=== PATIENT | male | born 1975 | race Caucasian/White ===

== ENCOUNTER 2024-03-08 15:16 | Emergency (ER) | payer BC, SELFPAY ==
[2024-03-08 15:17] VITALS: BP 157/90; PULSE 76; RESP 15; TEMP 36; O2SAT 100; BMI 31.8
--- NOTE | 2024-03-08 15:58 | CT_ITS ---
EXAM: CT ANGIOGRAPHY HEAD AND NECK WITH INTRAVENOUS CONTRAST CLINICAL INDICATION: sever headache TECHNIQUE: [place] [facility] [place]/head and neck CT angiography protocol performed with intravenous contrast. This CT exam was performed using one or more of the following dose reduction techniques: automated exposure control, adjustment of the mA and/or kV according to patient size, and/or use of iterative reconstruction technique. MIP reconstructed images were created and reviewed. CONTRAST: IV 100mL [id number] COMPARISON: No relevant prior studies available. FINDINGS: HEAD: RIGHT ANTERIOR CEREBRAL ARTERY: Unremarkable. No occlusion or significant stenosis. Anterior communicating artery is present. No aneurysm. RIGHT MIDDLE CEREBRAL ARTERY: Unremarkable. No occlusion or significant stenosis. No aneurysm. RIGHT POSTERIOR CEREBRAL ARTERY: Unremarkable. No occlusion or significant stenosis. No aneurysm. RIGHT INTRACRANIAL INTERNAL CAROTID ARTERY: Unremarkable. No significant stenosis. No dissection or occlusion. RIGHT INTRACRANIAL VERTEBRAL ARTERY: Unremarkable. No significant stenosis. No dissection or occlusion. LEFT ANTERIOR CEREBRAL ARTERY: Unremarkable. No occlusion or significant stenosis. No aneurysm. LEFT MIDDLE CEREBRAL ARTERY: Unremarkable. No occlusion or significant stenosis. No aneurysm. LEFT POSTERIOR CEREBRAL ARTERY: Unremarkable. No occlusion or significant stenosis. No aneurysm. LEFT INTRACRANIAL INTERNAL CAROTID ARTERY: Unremarkable. No significant stenosis. No dissection or occlusion. LEFT INTRACRANIAL VERTEBRAL ARTERY: Unremarkable. No significant stenosis. No dissection or occlusion. BASILAR ARTERY: Unremarkable. No occlusion or significant stenosis. No aneurysm. OTHER VASCULATURE: No vascular malformation. NECK: RIGHT COMMON CAROTID ARTERY: Unremarkable. No significant stenosis. No dissection or occlusion. RIGHT EXTRACRANIAL INTERNAL CAROTID ARTERY: Unremarkable. No significant stenosis. No dissection or occlusion. RIGHT EXTERNAL CAROTID ARTERY: Unremarkable. No occlusion. RIGHT EXTRACRANIAL VERTEBRAL ARTERY: Unremarkable. No significant stenosis. No dissection or occlusion. LEFT COMMON CAROTID ARTERY: Unremarkable. No significant stenosis. No dissection or occlusion. LEFT EXTRACRANIAL INTERNAL CAROTID ARTERY: Unremarkable. No significant stenosis. No dissection or occlusion. LEFT EXTERNAL CAROTID ARTERY: Unremarkable. No occlusion. LEFT EXTRACRANIAL VERTEBRAL ARTERY: Unremarkable. No significant stenosis. No dissection or occlusion. THYROID: There is a 1.9 x 1.7 cm peripherally enhancing low-density lesion in the left lobe of thyroid gland. BRACHIOCEPHALIC AND SUBCLAVIAN ARTERIES: Unremarkable as visualized. No occlusion or significant stenosis. LUNG APICES: Unremarkable as visualized. HEAD and NECK: BONES/JOINTS: Unremarkable. No discrete lytic or blastic abnormalities. SOFT TISSUES: Unremarkable. CAROTID STENOSIS REFERENCE USING NASCET CRITERIA: % ICA stenosis = (1 - narrowest ICA diameter/diameter of distal cervical ICA) x 100. Mild - <50% stenosis. Moderate - 50-69% stenosis. Severe - 70-94% stenosis. Near occlusion - 95-99% stenosis. Occluded - 100% stenosis. CT/CTA Head AND Neck W/ Contrast IMPRESSION: No acute findings in the arteries of the head and neck. Electronically Signed: Bobo Haddad MD at 17:17 EST ,
--- NOTE | 2024-03-08 16:02 | EX.ED.VIS.HA ---
HPI History of Present Illness Chief Complaint: Headache Informant: patient Onset/Context/Timing Onset: Days Context: Sudden (Awoke with the headache unsure of timing.) Timing: Continuous and Waxes and wanes Quality -Headache: Negative for Similar Prior Headaches Current Severity: Moderate Maximum Severity: Severe Associated Symptoms/Injury Associated Symptoms: Negative for Fever, Nausea, Vomiting, Sore Throat, Sinus Pressure, Numbness, Tingling, Preceding Aura, Visual Changes, Blurred Vision, Photophobia or Visual Loss Injury - [place]: Negative for Direct Trauma or Fall Narrative Narrative: Healthy 48-year-old male states on Wednesday he awoke with a headache left posterior scalp going on his forehead. He typically does not get headaches. There is no family history of brain aneurysms or bleeds or intracranial surgery. And a family history of migraines. Last week he had a URI with some mild sinus congestion but that resolved midweek and has been feeling fine. He is on no medications nor any blood thinners. He denies any fever. Denies any neck pain. Denies any trouble using his arms or legs or with his balance. No weakness or numbness. No one else at home is currently having headaches. Prior similar symptoms: No Recent Illness/Hospitalization: No PFSH PFSH Medical History no medical history no medical history Allergy/AdvReac Type Severity Reaction Status Date / Time No Known Allergies Allergy Verified 03/08/24 15:17 Surgical History no surgical history no surgical history Social History Smoking Status: Never smoker ROS ROS ED ROS Narrative Headache. No other symptoms. Constitutional Constitutional ED: Denies chills or fever(s) Eyes Eyes: Denies blurry vision ENT ENT ED: Denies ear pain Cardiovascular Cardiovascular: Denies chest pain Respiratory/Chest Respiratory/Chest: Denies cough Gastrointestinal Gastrointestinal: Denies abdominal pain Genitourinary Genitourinary ED: Denies dysuria Musculoskeletal Musculoskeletal: Denies arthralgias Integumentary Denies abscess Neurologic Neurologic: Denies headache(s) Psychiatric Psychiatric: Denies anxiety Endocrine Endocrinology: Denies polydipsia Hematologic/Lymphatic Hematologic/Lymphatic: Denies easy bleeding Allergic/Immunologic Allergic/Immunologic ED: Denies mouth swelling or tongue swelling EXAM Physical Exam Narrative Exam Narrative: Middle aged male sitting upright in bed. Vital signs are stable afebrile. No distress. No other family present in the room. H EENT exam pupils round react to light. His motions are intact. Normal facial appearance. No droop. Normal speech. No trauma to his face or scalp. No reproducible pain. No hematoma or lacerations. TMs normal. Tongue midline. Neck nontender no meningismus no lymphadenopathy. Normal range of motion. Lungs clear to auscultation bilaterally. Heart regular rhythm no murmur. Rate about 75. Chest wall ribs nontender. Abdomen soft nontender. Moving all 4 extremities. 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 Dorsi and plantarflexion intact. Fingertip to nose [id number] within normal limits. Able to lift either upper or lower extremity without drift. NIH score is 0. No focal motor findings. Completely benign exam. Const Vital Signs: 03/08/24 15:17 03/08/24 17:16 Temperature 96.8 F L Temperature Source Temporal Pulse Rate 76 64 Respiratory Rate 15 18 Blood Pressure 157/90 H 134/78 H Blood Pressure Mean 112 96 Pulse Ox 100 98 Oxygen Delivery Method Room Air Room Air Positive well nourished and well developed; Negative for cachectic, contractures or unkempt General Appearance ED: well developed; Negative for unkempt, cachectic, contractures, cyanotic or diaphoretic Nutritional Appearance: Negative for cachectic HEENT Reports normocephalic, TM's clear and moist mucous membranes; Denies dry mucous membranes atraumatic; Negative for trauma, tenderness, temporal artery tenderness or vesicular rash Face and Sinus: Negative for sinus tenderness Tympanic Membrane ED: Yes TM's clear Mouth ED: No dry mucous membranes Mouth: No dry mucous membranes Eyes PERRL and EOMs intact bilaterally General Eye ED: Negative for pale conjunctiva or scleral icterus Neck no lymphadenopathy, supple, no meningeal signs and no JVD General: Negative for tenderness Resp normal respiratory effort and clear to auscultation bilaterally Effort and Inspection: Negative for retractions Auscultation: Negative for rales, rhonchi, wheezes or diminished lung sounds Cardio regular rate, regular rhythm, S1 normal heart sound, S2 normal heart sound and no murmurs Rate: Negative for bradycardia or tachycardic Rhythm: Negative for abnormal rhythm GI non-tender and non-distended Auscultation: normoactive bowel sounds Palpation: soft; Negative for firm, tender, guarding or mass Back/Spine no CVA tenderness General Back: Negative for CVA tenderness or tenderness Cervical Spine: Negative for cervical spine tenderness Thoracic Spine / Upper Back: Negative for thoracic spinal tenderness Lumbar Spine / Lower Back: Negative for lumbar spinal tenderness Extremity normal to inspection and full ROM Neuro oriented x3, CN's II-XII intact bilaterally and no sensory deficits noted Sensorium / Orientation: awake, alert, oriented to person, oriented to place and oriented to time; Negative for orientation impaired or lethargic Coordination / Balance: [id number] test normal and [id number] test normal Speech: speech normal Motor Exam: strength 5/5 throughout Psych mental status grossly normal Appearance: Negative for unkempt Attitude: No agitated Mood & Affect: Negative for depressed, anxious or tearful Skin General Skin Exam: elasticity normal; Negative for turgor normal or jaundice Lesions: no lesions Rashes: no rashes MDM MDM MDM Narrative Medical decision making narrative: 48-year-old male with moderate to severe headache for 3 days. No prior history of headaches. No family history of bleeds, aneurysms or intracranial surgery. As a completely normal neurologic exam. No one else at home is currently having headaches. Screening labs and CT will be obtained. Will be treated with Toradol Benadryl and Reglan IV fluids and reassess. Repeat exam around 5 PM patient had a continued headache. He was given 4 morphine. Repeat exam at History & Record Review Discussion w/independent historian: Patient Additional record(s) reviewed:: No prior records Lab Data Attestation: I reviewed the patient's lab results. Lab results narrative: CBC normal. White count 9. H&H 16 and 46. Platelets 273. Electrolytes unremarkable gap 4. BUN 19 creatinine 1. Glucose 98. CTA of the brain negative. No bleed. No mass. No aneurysm. Labs: Laboratory Results - last 24 hr 03/08/24 16:07 WBC 9.2 RBC 5.36 Hgb 16.1 Hct 46.3 MCV 86.4 MCH 30.0 MCHC 34.8 RDW Std Deviation 39.5 RDW Coeff of Vivienne 12.7 Plt Count 273 MPV 9.7 Immature Gran % (Auto) 0.500 Neut % (Auto) 59.1 Lymph % (Auto) 32.4 Spencer % (Auto) 5.3 Eos % (Auto) 2.1 Baso % (Auto) 0.6 Absolute Neuts (auto) 5.5 Absolute Lymphs (auto) 2.99 Nucleated RBC % 0 Sodium 138 Potassium 4.0 Chloride 106 Carbon Dioxide 28.0 Anion Gap 4 L BUN 19 H Creatinine 1.08 Estim Creat Clear Calc 104.39 Est GFR (MDRD) Af Amer 93 Est GFR (MDRD) Non-Af 77 BUN/Creatinine Ratio 17.6 Glucose 98 Calcium 9.2 Radiography Diagnostic Testing: Clinical Impression(s) from Imaging Studies Head/Neck CTA 03/08/24 15:58 IMPRESSION: No acute findings in the arteries of the head and neck. Electronically Signed: Bobo Haddad MD at 17:17 EST , Discharge Plan Triage Chief Complaint: Headache ED Provider: Eligio Hickman Dx/Rx/DC Orders Primary Care Provider: Elbert Harris Referrals: Elbert Harris MD [Primary Care Provider] - Print Language: Haitian
[2024-03-08 16:17] LABS: Absolute Lymphocyte Count 2.99 X10^3/uL (0.83-4.51); Absolute Neutrophil Count 5.5 X10^3/uL (2.0-7.7); Basophil# 0.06 X10^3/uL; Basophil% 0.6 % (0-1); Eosinophil# 0.19 X10^3/uL; Eosinophils% 2.1 % (0-5); Hematocrit 46.3 % (40-54); Hemoglobin 16.1 g/dL (13.0-16.5); Lymphocyte # 2.99 X10^3/ul (0.83-4.51); Lymphocyte % 32.4 % (19-41); Mean Corp Hgb Conc 34.8 g/dL (32-36); Mean Corpuscular Volume 86.4 fL (80-94); Mean Platelet Vol. 9.7 fl (6.2-12.0); Monocyte# 0.49 X10^3/uL; Monocyte% 5.3 % (0-10); NRBC Flagged by Analyzer 0 % (0-5); Neutrophil # 5.46 X10^3/uL (2.7-7.7); Neutrophil % 59.1 % (47-70); Platelet Count 273 K/mm3 (150-450); RBC Distribution Width CV 12.7 % (11.6-14.6); RBC Distribution Width SD 39.5 fl (35.1-43.9); Red Blood Count 5.36 M/mm3 (4.6-6.2); White Blood Count 9.2 K/mm3 (4.4-11.0)
[2024-03-08] MEDS: Ketorolac 30 MG/ML Syringe IV (16:20)
[2024-03-08] MEDS: DiphenhydrAMINE 50 MG/ML Syringe 25 MG IV (16:20)
[2024-03-08] MEDS: Metoclopramide 10 MG/2 ML Vial 5 MG IV (16:20)
[2024-03-08] MEDS: 0.9% Normal Saline (500mL Bag) 500 ML 999 ML IV (16:26)
[2024-03-08 16:35] LABS: Anion Gap 4 (5-15); BUN 19 mg/dL (7-18); BUN/Creat Ratio 17.6 RATIO (10-20); Calcium,Total 9.2 mg/dL (8.5-10.1); Chloride 106 mmol/L (98-107); Creatinine, Serum 1.08 mg/dL (0.70-1.30); EST Glomerular Filtration Rate 77 mL/min (>60); Est Glom Filt Rate - Afr Amer 93 mL/min (>60); Estimated Creatinine Clearance 104.39 ml/min; Glucose 98 mg/dL (74-106); Sodium Level 138 mmol/L (136-145)
[2024-03-08 17:16] VITALS: BP 134/78; PULSE 64; RESP 18; O2SAT 98
[2024-03-08] MEDS: Morphine 4 MG/ML Syringe IV (17:43)
[2024-03-08 18:07] VITALS: BP 130/88; PULSE 85; RESP 16; TEMP 36.1; O2SAT 99
== END 2024-03-08 18:09 | disposition home or self-care (01) ==
PROVIDERS: Emergency Provider Emergency Medicine; PCP Family Medicine; Referring Provider Emergency Medicine; Visit Provider Emergency Medicine
DX: R51.9 Headache, unspecified (principal)
CPT/HCPCS: 70496; 70498; 80048; 85025; 96361; 96374; 96375; 99283; Q9967; A4216

== ENCOUNTER 2024-07-10 19:17 | Emergency (ER) | payer BC, SELFPAY ==
[2024-07-10 19:18] VITALS: BP 143/101; PULSE 107; RESP 20; TEMP 36.7; O2SAT 97; BMI 32.8
--- NOTE | 2024-07-10 20:11 | US_ITS ---
PROCEDURE: VENOUS DUPLEX IMAG/LIMITED/UNI 07/10/2024 REASON FOR EXAM: Leg pain and swelling M 49 y/o TECHNIQUE: Grayscale color flow and doppler analysis of the left lower extremity. FINDINGS: There is no intraluminal echogenicity to suggest the presence of a deep venous thrombosis. Appropriate respiratory variation, augmentation and venous compression is noted. Oval hypoechoic area within the superficial subcutaneous fat of the calf may represent a thrombosed superficial vein. US/Venous Duplex Imag/Limited/Uni IMPRESSION: No ultrasound evidence of deep venous thrombosis. Suspect thrombosed superficial vein in the left calf. Reading Location: [id number]
[2024-07-10] MEDS: Aspirin 325 MG Tablet PO (21:33)
--- NOTE | 2024-07-10 21:40 | EDS_ITS ---
HPI History of Present Illness Chief Complaint: Lower Extremity Injury Informant: patient Narrative Narrative: 49-year-old male presenting to the emergency room with a chief complaint of concern for blood clot. Patient states on Wednesday he began to have some pain redness and firm sensation over some varicose veins over the medial left leg. He states that the distal leg is not particularly swollen compared to the other. He notes varicosities over the medial thigh that do not feel the same way. No history of DVT/PE or risk factors.. He went to urgent care was referred to emergency. PFSH PFS Medical History no medical history Allergy/AdvReac Type Severity Reaction Status Date / Time No Known Allergies Allergy Verified 03/08/24 15:17 Social History Smoking Status: Never smoker ROS ROS ED Constitutional Constitutional ED: Denies chills or weight loss Eyes Eyes: Denies change in vision or diplopia ENT ENT ED: Denies ear pain, rhinorrhea or sore throat Cardiovascular Cardiovascular: Denies chest pain, orthopnea, palpitations or racing heartbeat Respiratory/Chest Respiratory/Chest: Denies cough, dyspnea or orthopnea Gastrointestinal Gastrointestinal: Denies abdominal pain, diarrhea, nausea or vomiting Genitourinary Genitourinary ED: Denies dysuria, hematuria or urinary frequency Musculoskeletal Musculoskeletal: Reports other Details: See history of present illness ; Denies arthralgias or myalgias Integumentary Denies abscess or rash Neurologic Neurologic: Denies headache(s) or weakness Psychiatric Psychiatric: Denies anxiety, depression, suicidal ideation or suicidal thoughts Endocrine Endocrinology: Denies polydipsia, polyphagia or polyuria Allergic/Immunologic Allergic/Immunologic ED: Denies mouth swelling, tongue swelling or urticaria EXAM Physical Exam Const Vital Signs: 07/10/24 19:18 Temperature 98.1 F Temperature Source Temporal Pulse Rate 107 H Respiratory Rate 20 H Blood Pressure 143/101 H Blood Pressure Mean 115 Pulse Ox 97 Oxygen Delivery Method Room Air Positive well nourished and well developed General Appearance ED: well developed HEENT Reports normocephalic, head/scalp atraumatic and moist mucous membranes Eyes PERRL and EOMs intact bilaterally Neck no lymphadenopathy, supple and no JVD Resp normal respiratory effort and clear to auscultation bilaterally Cardio regular rate, regular rhythm and no murmurs GI normal to inspection, nondistended, normoactive bowel sounds and non-tender Palpation: soft Back/Spine no CVA tenderness and normal ROM Extremity Extremity Narrative: Patient has evidence of varicose veins of the left leg and thigh. There is an area of superficial thrombophlebitis that is palpable in an area of a varicose vein over the medial proximal leg. I do not appreciate distal leg swelling compared to the right. No lymphangitic streaking or streaking along the vein. I do not appreciate any superficial thrombosis posteriorly on the calf. General Extremety ED: Negative for edema General Extremity: Negative for edema Neuro oriented x3 and CN's II-XII intact bilaterally Sensorium / Orientation: alert Motor Exam: strength 5/5 throughout Psych mental status grossly normal Mood & Affect: Negative for depressed or tearful Skin no rashes or lesions noted and no wounds MDM MDM MDM Narrative Medical decision making narrative: Differential diagnosis includes DVT superficial thrombophlebitis varicose veins venous insufficiency Duplex ultrasound was obtained. This demonstrates superficial thrombophlebitis. He does not appear to to be near the superficial peroneal junction and it it is further than 5 cm from the superficial femoral junction. The length of thrombosis is about 4 cm. I think at this point the patient can be discharged home with symptomatic care. Advised on heat full-strength aspirin follow-up with vascular surgery. Unfortunately I do not have vascular surgery to consult with rey. History & Record Review Discussion w/independent historian: Patient Radiography Diagnostic Testing: Clinical Impression(s) from Imaging Studies Venous Duplex 07/10/24 20:11 IMPRESSION: No ultrasound evidence of deep venous thrombosis. Suspect thrombosed superficial vein in the left calf. Reading Location: [facility] [[email or web address] Discharge Plan Triage Chief Complaint: Lower Extremity Injury ED Provider: Hugo Tidwell Dx/Rx/DC Orders Clinical Impression: Superficial thrombophlebitis of left leg Instructions: ED Thrombophlebitis, Superficial Primary Care Provider: Elbert Harris Referrals: Khang Mandujano MD [Med Staff - Active Staff] - As soon as possible (for vascular surgery) Elbert Harris MD [Primary Care Provider] - Activity Restrictions/Additional Instructions: Hide recommend warm compresses/heating pad to the area. Take a full-strength aspirin every day. Please follow-up with vascular surgery If you see any changes or feel that the area of clot is growing please return to emergency Print Language: French Disposition Disposition: Home, Self Care
== END 2024-07-10 21:46 | disposition home or self-care (01) ==
PROVIDERS: Emergency Provider Emergency Medicine; PCP Family Medicine; Visit Provider Emergency Medicine
DX: I80.02 Phlebitis and thrombophlebitis of superficial vessels of left lower extremity (principal)
CPT/HCPCS: 93971; 99283